=== PATIENT | female | born 1990 | race Caucasian/White ===

== ENCOUNTER 2024-02-04 23:16 | Emergency (ER) | payer MEDICARE, OTHER, SELFPAY ==
[2024-02-04 23:18] VITALS: BP 116/81
[2024-02-04 23:59] LABS: Hematocrit 36.9 % (37.0-47.0); Mean Corp Hgb Conc. 35.2 g/dL (33.0-37.0); Mean Corpuscular Hgb 29.3 pg (27.0-31.0); Mean Corpuscular Volume 83.3 fL (81.0-99.0); Mean Platelet Volume 9.1 fL (7.4-10.4); Nucleated Red Blood Cells % 0 %; Platelet Count 218 10^3/uL (130-400); Red Blood Cell Count 4.43 10^6/uL (4.20-5.40); Red Cell Dist. Width 13.9 % (11.5-14.5); White Blood Cell Count 9.1 10^3/uL (4.8-10.8)
[2024-02-05 00:13] LABS: HCG, Serum Qualitative Screen Negative
[2024-02-05 00:16] LABS: ALT (SGPT) 14 U/L (0-35); AST (SGOT) 17 U/L (14-36); Albumin 4.4 g/dl (3.5-5.0); Alkaline Phosphatase 55 U/L (38-126); Blood Urea Nitrogen 19 mg/dl (7-17); Calcium 9.2 mg/dl (8.4-10.2); Carbon Dioxide 26 mmol/L (22-30); Chloride 103 mmol/L (98-107); Glucose 106 mg/dl (70-99); Potassium 3.3 mmol/L (3.5-5.1); Sodium 134 mmol/L (135-145); Total Bilirubin 0.7 mg/dl (0.2-1.3); Total Protein 6.8 g/dl (6.3-8.2); eGFR > 60.00
[2024-02-05 00:22] LABS: Troponin I < 0.012 ng/ml
[2024-02-05 00:52] LABS: Absolute Neutrophils -Man Diff 3.3 10^3/uL (1.4-6.5); Atypical Lymphocytes 6 %; Band Neutrophils 0 % (0-3); Eosinophils 2 % (0-6); Lymphocytes 50 % (20-51); Monocytes 5 % (2-9); Platelets Checked Yes; Segmented Neutrophils 37 % (42-75)
[2024-02-05 00:53] LABS: Normal RBC Morphology Yes; Total Cells Counted 100
[2024-02-05 01:30] VITALS: BMI 23.3
[2024-02-05 01:35] VITALS: BP 119/79
[2024-02-05 02:00] VITALS: BP 106/68
--- NOTE | 2024-02-05 02:43 | ED.GENMED ---
History of Present Illness
<DARIO Crane - Last Filed: 02/05/24 04:22>
General
Chief Complaint: Weakness
Source: patient
Exam Limitations: none
Time Seen by Provider: 02/05/24 02:34
Travel History
Have you had any contact with someone who has COVID-19?: No
Do you have any symptoms of coronavirus? Fever > 100 degrees, chills, cough, shortness of breath, sore throat, loss of taste or smell, muscle aches, or headache?: No
History of Present Illness
History of Present Illness:
This is a 33 yo female PMH multiple sclerosis presenting for bilateral lower extremity weakness. She states this started at 8pm and her legs felt weak and shaky while standing or walking. At rest she describes mild paresthesias/ She states this is
consistent with previous MS flares, the last one being a few years ago. She has been taking Natalizumab ever since her MS diagnosis in 2019. She states this episode of weakness was followed by moderate parasternal chest pressure, which she states
has mostly improved since arrival to the ER.
She denies vision/hearing loss, pain with extraocular movement, fever, nausea, vomiting
EKG NSR, troponin<.012
Past History
<DARIO Crane - Last Filed: 02/05/24 04:22>
Past History
ED Past Medical History: Psychiatric (A/D, ADHD), Other (Headaches), Other (Hep C-txed/resolved) and Other (LEEP procedure)
ED Past Surgical History: Cholecystectomy
Patient has exhibited threatening behavior?: No
PSI?: No
Social History
Tobacco: Smoker
Alcohol: Occasional
Drug: Former user (heroin)
Personal: Single
Living: with family
Employment: Employed
Family History
Family History: Other (reviewed and noncontributory)
Review of Systems
<DARIO Crane - Last Filed: 02/05/24 04:22>
Review of Systems
Allergies reviewed?: Yes
Constitutional: Reports no symptoms
EENT: Reports no symptoms
Respiratory: Reports no symptoms
Cardiac: Reports chest pain
Neurological: Reports weakness and numbness
Phy Exam
<DARIO Crane - Last Filed: 02/05/24 04:22>
General Physical Exam
General Presentation: well appearing
General Skin: warm and dry
Eye Exam
Eye Exam: PERRL and EOMI
Cardiovascular Exam
Cardiovascular Exam: regular rate/rhythm, no gallop and no murmur
Pulmonary Exam
Pulmonary Exam: lungs clear
Neurological Exam
Neurological Exam: alert, oriented x3, no motor deficits and no sensory deficits
Musculoskeletal Exam
Musculoskeletal Exam: full ROM
Course
<DARIO Crane - Last Filed: 02/05/24 04:22>
Orders/Labs/Results
Orders:
Orders
02/04/24 23:28
EKG [Electrocardiogram (*1)] Urgent
Reason for Study: Chest Pain
02/04/24 23:29
EKG- Treatment ONCE
Test Result ONCE
02/04/24 23:53
Complete Blood Count/With Diff Urgent
Comprehensive Metabolic Panel Urgent
HCG, Serum Qualitative Screen Urgent
Manual Differential Urgent
Troponin I Urgent
02/05/24 03:59
Dexamethasone Pf [Decadron] 10 mg PO NOW STA
Abnormal Lab Results
02/04/24
23:53
Hct 36.9 L %
(37.0-47.0)
Segmented Neutrophils 37 L %
(42-75)
Sodium 134 L mmol/L
(135-145)
Potassium 3.3 L mmol/L
(3.5-5.1)
BUN 19 H mg/dl
(7-17)
Glucose 106 H mg/dl
(70-99)
02/04/24 23:53
02/04/24 23:53
Vital Signs
Initial and Last Documented VS:
Initial Vital Signs
Temp Pulse Resp BP Pulse Ox
98.6 F 113 18 116/81 100
02/04/24 23:18 02/04/24 23:18 02/04/24 23:18 02/04/24 23:18 02/04/24 23:18
Last Documented Vital Signs
Temp Pulse Resp BP Pulse Ox
98.6 F 114 22 124/76 98
02/04/24 23:18 02/05/24 04:00 02/05/24 04:00 02/05/24 04:00 02/05/24 04:00
<Jim Frye, - Last Filed: 02/05/24 04:01>
Orders/Labs/Results
Orders:
Orders
02/04/24 23:28
EKG [Electrocardiogram (*1)] Urgent
Reason for Study: Chest Pain
02/04/24 23:29
EKG- Treatment ONCE
Test Result ONCE
02/04/24 23:53
Complete Blood Count/With Diff Urgent
Comprehensive Metabolic Panel Urgent
HCG, Serum Qualitative Screen Urgent
Manual Differential Urgent
Troponin I Urgent
02/05/24 03:59
Dexamethasone Pf [Decadron] 10 mg PO NOW STA
Abnormal Lab Results
02/04/24
23:53
Hct 36.9 L %
(37.0-47.0)
Segmented Neutrophils 37 L %
(42-75)
Sodium 134 L mmol/L
(135-145)
Potassium 3.3 L mmol/L
(3.5-5.1)
BUN 19 H mg/dl
(7-17)
Glucose 106 H mg/dl
(70-99)
02/04/24 23:53
02/04/24 23:53
Vital Signs
Initial and Last Documented VS:
Initial Vital Signs
Temp Pulse Resp BP Pulse Ox
98.6 F 113 18 116/81 100
02/04/24 23:18 02/04/24 23:18 02/04/24 23:18 02/04/24 23:18 02/04/24 23:18
Last Documented Vital Signs
Temp Pulse Resp BP Pulse Ox
98.6 F 114 22 124/76 98
02/04/24 23:18 02/05/24 04:00 02/05/24 04:00 02/05/24 04:00 02/05/24 04:00
<DARIO Crane - Last Filed: 02/05/24 04:22>
MDM/Problems Addressed
Differential Diagnosis Includes:
Multiple sclerosis flare
-BL leg weakness x 3 hours. The patient reports this is symptomatically consistent with her previous MS flare.
-This appears to be a mild MS flare with no significantly concerning clinical features such as: optic neuritis, diplopia, vertigo, facial numbness,
MDM/Problems Addressed:
PO Decadron
<DARIO Crane - Last Filed: 02/05/24 04:22>
*Critical Care Note
Total Time (30-74mins, 75-104mins- exclusive of procedures): Not Applicable
ED Attending Note
<DARIO Crane - Last Filed: 02/05/24 04:22>
-
Portions of this chart may have been created with voice recognition software.� Occasional wrong word or��sound alike� substitutions may have occurred due to the inherent limitations of voice recognition software.
<Jim Frye DO - Last Filed: 02/05/24 04:01>
ED Attending Note
Patient seen and examined by attending physician: Yes
I performed the substantive portion of visit, reviewed & personally made and approve the management plan that is documented in note by myself or NICK.: Yes
ED Attending Note:
Pleasant 33-year-old female presents with bilateral lower extremity weakness. She has multiple sclerosis and she states that this weakness is consistent with an MS flare. She states that she has flares on occasion with the last one being a few
years ago. She states that her symptoms have improved since getting here. Denies fever, chills, nausea or vomiting. Patient was seen in conjunction with the PA student. I have reviewed and agree with the history and treatment plan presented. On
my independent physical exam, patient is awake, alert, and oriented x3, no acute distress at this time. Heart is regular rate and rhythm. Lungs are clear to auscultation bilaterally without wheezes rales or rhonchi present. Moves all 4
extremities.
Plan is oral Decadron. Discharge follow-up with neurology.
Discharge Plan
Departure
Patient Disposition: Home (Routine Discharge)
Date of Disposition: 02/05/24
Time of Disposition: 04:00
Patient with high blood pressure during this ER visit?: No
Discharge Problem:
Leg weakness, bilateral, Multiple sclerosis flare
Instructions: Multiple sclerosis in adults, Generalized Weakness (DC)
Prescriptions:
No Action
hydroxyzine pamoate [Vistaril] 100 mg Capsule
100 mg PO TID
acetaminophen [Tylenol] 325 mg Tablet
650 mg PO PRN PRN (Reason: pain)
dextroamphetamine-amphetamine [Adderall] 30 mg Tablet
30 mg PO BID
tamsulosin 0.4 mg Capsule
0.4 mg PO HS
cholecalciferol (vitamin D3) [Vitamin D3] 125 mcg (5,000 unit) Tablet
125 mcg PO DAILY
Myrbetriq 25 mg Tablet Extended Release 24 Hr
50 mg PO HS
Tysabri 300 mg/15 mL Solution
300 mg IV Q4W
Rx Instructions:
Last infusion: 08/11/2022
gabapentin 600 mg Tablet
300 mg PO TID
buspirone 15 mg Tablet
30 mg PO BID
bupropion HCl 450 mg Tablet Extended Release 24 Hr
450 mg PO DAILY
Referrals:
Yasemin Smith DO [Family Provider] -
Activity Restrictions/Additional Instructions:
It was a pleasure meeting you and taking part in your care. We hope for your continued healing and wellness.
Please read discharge instructions in their entirety. However, they are for general education and may not describe your exact diagnosis at discharge. Information on your ER visit and medical conditions were discussed with you along with appropriate
follow up information...
If indicated, please take your medications as instructed and indicated on discharge paperwork.
Please schedule a follow up appointment as directed. Call to schedule an appointment
Please return to the emergency department with ANY change in, persisting, or worsening of symptoms. If any of your symptoms do not improve, or persist, or become more severe within 6-12 hours, please return to the emergency department for further
care.
Please return to the emergency department if you develop a headache, neck pain/stiffness, fever greater than 100.4F, chest pain, shortness of breath, persistent nausea, vomiting, slurred speech, difficulty walking, numbness/tingling, weakness, signs
of infection or any other symptoms that are worrisome to you.
If you have any questions or concerns please do not hesitate to call the Hospital at or E-mail me directly at [email or web address]
Interventions
Interventions:
*Risk Screen - Suicide Last Done: 02/05/24 01:30
*General Assessment Last Done: 02/04/24 23:26
*Neglect/Abuse Screening Last Done: 02/05/24 04:10
ED- Fall Risk Assessment Last Done: 02/05/24 01:30
*Nursing Disposition Last Done: 02/05/24 04:10
ED- Cardiac Assessment Last Done: 02/05/24 01:30
ED- Neurological Assessment Last Done: 02/05/24 01:30
ED- Pulmonary Assessment Last Done: 02/05/24 01:30
Discharge Date and Time
Print Language: [id number]
[2024-02-05 03:00] VITALS: BP 119/72
[2024-02-05 04:00] VITALS: BP 124/76
[2024-02-05] MEDS: DECADRON 10 MG PO (04:07)
== END 2024-02-05 04:10 | disposition home or self-care (01) ==
LOC: EMR 23:16
PROVIDERS: EMERGENCY PHYSICIAN Student in an Organized Health Care Education/Training Program; FAMILY PHYSICIAN Family Medicine
DX: G35 Multiple sclerosis (principal); F17.200 Nicotine dependence, unspecified, uncomplicated
CPT/HCPCS: 99284; 80053; 84484; 84703; 85025; 93005